=== PATIENT | female | born 1985 | race Two or more races ===

== ENCOUNTER → 2021-02-19 | Outpatient (CLI) | payer OTHER | END | disposition home or self-care (01) | LOC: PPH VACUNA | DX: Z23 Encounter for immunization (principal) ==

== ENCOUNTER 2023-04-16 15:10 | Inpatient (IN) | payer OTHER ==
[~2023-04-16] VITALS: Ht 142.2 cm; Wt 62.6 kg
[2023-04-17] MEDS ORDERED: ASHLYNA 0.15-01 EACH PO (14:56)
[2023-04-24] MEDS ORDERED: CIPRO500 MG PO (08:15)
[2023-04-24] MEDS ORDERED: METRONIDAZOLE500 MG PO (08:15)
[2023-04-24] MEDS ORDERED: FLUCONAZOLE100 MG PO (08:17)
[2023-04-24] MEDS ORDERED: TRAM1TAB98 PO (08:17)
[2023-04-24] MEDS ORDERED: INTESTINEX680 M1 PO (08:17)
[2023-04-24] MEDS ORDERED: ZYRTEC10 MG PO (08:18)
== END 2023-04-24 10:30 | disposition home or self-care (01) | DRG 349 ==
LOC: SURG 04-21 08:45 → SURH 04-21 10:31 → O/R 04-21 10:31 → SURH 04-21 11:12 → SURG 04-21 11:15 → SURH 04-24 10:30
PROVIDERS: ADMIT Surgery; ATTEND Surgery
PROC: 0JQB0ZZ Repair Perineum Subcutaneous Tissue and Fascia, Open Approach (ICD-10-PCS; 2023-04-21)
PROC: 0DQR0ZZ Repair Anal Sphincter, Open Approach (ICD-10-PCS; 2023-04-21)
PROC: 0WQNXZZ Repair Female Perineum, External Approach (ICD-10-PCS; 2023-04-21)
PROC: 0DBP7ZZ Excision of Rectum, Via Natural or Artificial Opening (ICD-10-PCS; principal; 2023-04-21 08:45)
DX: N82.3 Fistula of vagina to large intestine (principal); K62.81 Anal sphincter tear (healed) (nontraumatic) (old); Z20.822 Contact with and (suspected) exposure to COVID-19

== ENCOUNTER 2023-06-21 12:21 | Inpatient (IN) | payer OTHER ==
[~2023-06-21] VITALS: Ht 142.2 cm; Wt 55.3 kg
[~2023-06-21 12:21] MED LIST: ASHLYNA 0.15-01 EACH PO; CIPRO500 MG PO; FLUCONAZOLE100 MG PO; INTESTINEX680 M1 PO; METRONIDAZOLE500 MG PO; TRAM1TAB98 PO; ZYRTEC10 MG PO
[2023-06-27] MEDS ORDERED: LEVSIN0.125 MG PO (12:05)
[2023-06-27] MEDS ORDERED: INTESTINEX680 M1 PO (12:06)
[2023-06-27] MEDS ORDERED: IMODIUM A-1 MG/7.5 M PO (12:06)
== END 2023-06-27 17:19 | disposition home or self-care (01) | DRG 330 ==
LOC: ER 12:21 → SURG 22:23 → SURH 22:23 → SURG 06-22 08:26
PROVIDERS: General Practice; Internal Medicine Geriatric Medicine; ADMIT Surgery; ATTEND Surgery
PROC: BW21Y0Z Computerized Tomography (CT Scan) of Abdomen and Pelvis using Other Contrast, Unenhanced and Enhanced (ICD-10-PCS; 2023-06-21)
PROC: 0W9N0ZZ Drainage of Female Perineum, Open Approach (ICD-10-PCS; 2023-06-23)
PROC: 0D1B4Z4 Bypass Ileum to Cutaneous, Percutaneous Endoscopic Approach (ICD-10-PCS; principal; 2023-06-25 10:15)
DX: N82.3 Fistula of vagina to large intestine (principal); L02.215 Cutaneous abscess of perineum; Z20.822 Contact with and (suspected) exposure to COVID-19

== ENCOUNTER 2023-06-29 10:21 | Inpatient (IN) | payer OTHER ==
[~2023-06-29] VITALS: Ht 142.2 cm; Wt 54.9 kg
[~2023-06-29 10:21] MED LIST changes: +IMODIUM A-1 MG/7.5 M PO; +LEVSIN0.125 MG PO
[2023-07-05] MEDS ORDERED: HYOSCYAMINE0.125 M1 SL (12:53)
[2023-07-05] MEDS ORDERED: INTESTINEX680 M1 PO (12:53)
[2023-07-05] MEDS ORDERED: SIMETHICONE125 M1 PO (12:54)
[2023-07-05] MEDS ORDERED: PEPCID AC20 MG PO (12:56)
[2023-07-05] MEDS ORDERED: NEURONTIN300 MG PO (12:56)
[2023-07-05] MEDS ORDERED: PAIN RELIEF EX500 MG PO (12:56)
== END 2023-07-05 16:42 | disposition home or self-care (01) | DRG 389 ==
LOC: ER 10:21 → SURH 16:49
PROVIDERS: ADMIT Surgery; ATTEND Surgery
PROC: 0D9670Z Drainage of Stomach with Drainage Device, Via Natural or Artificial Opening (ICD-10-PCS; principal; 2023-06-29)
PROC: BW21ZZZ Computerized Tomography (CT Scan) of Abdomen and Pelvis (ICD-10-PCS; 2023-06-29)
PROC: 8E0ZXY6 Isolation (ICD-10-PCS; 2023-07-03)
PROC: 02HV33Z Insertion of Infusion Device into Superior Vena Cava, Percutaneous Approach (ICD-10-PCS; 2023-07-03)
DX: K56.600 Partial intestinal obstruction, unspecified as to cause (principal); K94.13 Enterostomy malfunction; N39.0 Urinary tract infection, site not specified; Z16.24 Resistance to multiple antibiotics; B96.1 Klebsiella pneumoniae [K. pneumoniae] as the cause of diseases classified elsewhere; K29.60 Other gastritis without bleeding; K21.9 Gastro-esophageal reflux disease without esophagitis

== ENCOUNTER 2023-12-01 10:00 | Inpatient (IN) | payer OTHER ==
[~2023-12-01] VITALS: Ht 142.2 cm; Wt 58.5 kg
[~2023-12-01 10:00] MED LIST changes: +HYOSCYAMINE0.125 M1 SL; +NEURONTIN300 MG PO; +PAIN RELIEF EX500 MG PO; +PEPCID AC20 MG PO; +SIMETHICONE125 M1 PO
[2023-12-10 14:37] LABS: ABG PO2 142.8 mmHg (80-100); BASE EXCESS -2.2 mmol/l; BICARBONATE 22.5 mmol/l (23-25); SaO2 99.1 %; Tco2 23.7 mmol/l; allen test SATISFACTORY; o2 32 %; puncture site RADIAL RIGHT
[2023-12-10 15:16] LABS: HEMATOCRIT 39.7 % (36.0-45.00); HEMOGLOBIN 13.5 g/dL (12.0-15.00); MEAN CELL VOLUME 84.7 fL (80.00-100.00); MEAN CORPUSCULAR HEMOGLOBIN 28.8 pg (27.00-32.0); PLATELET COUNT 307 K/uL (150-450); RED BLOOD COUNT 4.68 M/uL (4.00-6.00); RED CELL DISTRIBUTION WIDTH 13.3 % (11.5-14.5)
[2023-12-11 07:00] LABS: HEMATOCRIT 36.7 % (36.0-45.00); HEMOGLOBIN 12.5 g/dL (12.0-15.00); MEAN CELL VOLUME 83.7 fL (80.00-100.00); MEAN CORPUSCULAR HEMOGLOBIN 28.5 pg (27.00-32.0); PLATELET COUNT 284 K/uL (150-450); RED BLOOD COUNT 4.39 M/uL (4.00-6.00); RED CELL DISTRIBUTION WIDTH 13.4 % (11.5-14.5)
[2023-12-11 07:17] LABS: ALBUMIN 3.2 gm/dL (3.4-5.0); CALCIUM 8.7 mg/dL (8.5-10.1); CREATININE SERUM 0.51 mg/dL (0.55-1.02); GFR 134.96; MAGNESIUM 1.9 mg/dL (1.8-2.4); PHOSPHOROUS 3.9 mg/dL (2.5-4.9); POTASSIUM 4.48 mEq/L (3.5-5.1)
[2023-12-12 06:26] LABS: HEMATOCRIT 37.8 % (36.0-45.00); HEMOGLOBIN 13.1 g/dL (12.0-15.00); MEAN CELL VOLUME 83.1 fL (80.00-100.00); MEAN CORPUSCULAR HEMOGLOBIN 28.8 pg (27.00-32.0); MEAN CORPUSCULAR HGB CONC 34.6 g/dl (32.0-36.0); PLATELET COUNT 273 K/uL (150-450); RED BLOOD COUNT 4.55 M/uL (4.00-6.00); RED CELL DISTRIBUTION WIDTH 13.5 % (11.5-14.5)
[2023-12-12 06:59] LABS: CALCIUM 8.7 mg/dL (8.5-10.1); CREATININE SERUM 0.52 mg/dL (0.55-1.02); GFR 131.97; MAGNESIUM 2.1 mg/dL (1.8-2.4); PHOSPHOROUS 2.6 mg/dL (2.5-4.9); POTASSIUM 3.6 mEq/L (3.5-5.1)
[2023-12-13] MEDS ORDERED: GABAPENTIN300 MG PO (13:03)
== END 2023-12-13 13:41 | disposition home or self-care (01) | DRG 330 ==
LOC: O/R 12-10 06:00 → SURG 12-10 06:00 → SURH 12-10 09:15 → SURG 12-10 16:25
PROVIDERS: Internal Medicine Geriatric Medicine; ADMIT Surgery; ATTEND Surgery
PROC: 0DQP7ZZ Repair Rectum, Via Natural or Artificial Opening (ICD-10-PCS; 2023-12-10)
PROC: 0DQR0ZZ Repair Anal Sphincter, Open Approach (ICD-10-PCS; 2023-12-10)
PROC: 0WQN0ZZ Repair Female Perineum, Open Approach (ICD-10-PCS; 2023-12-10)
PROC: 0UQG7ZZ Repair Vagina, Via Natural or Artificial Opening (ICD-10-PCS; 2023-12-10)
PROC: 0DBP7ZZ Excision of Rectum, Via Natural or Artificial Opening (ICD-10-PCS; principal; 2023-12-10 09:15)
PROC: 4A12X4Z Monitoring of Cardiac Electrical Activity, External Approach (ICD-10-PCS; 2023-12-11)
DX: K61.0 Anal abscess (principal); N82.3 Fistula of vagina to large intestine; R15.9 Full incontinence of feces; G47.30 Sleep apnea, unspecified; S31.831A Laceration without foreign body of anus, initial encounter

== ENCOUNTER 2024-07-26 11:58 | Inpatient (IN) | payer OTHER ==
[~2024-07-26] VITALS: Ht 142.2 cm; Wt 64.9 kg
[~2024-07-26 11:58] MED LIST changes: +GABAPENTIN300 MG PO
[2024-08-02] MEDS ORDERED: METRONIDAZOLE/SODIUM CHLORIDE 500 MG/100 ML PIGGYBACK IV ONE (07:21)
[2024-08-02] MEDS ORDERED: CEFTRIAXONE SODIUM 2,000 MG VIAL ONE (07:21)
[2024-08-02] MEDS ORDERED: LIDOCAINE HCL 1%/EPINEPHRINE 20ML VIAL IJ ONE (07:22)
[2024-08-02] MEDS ORDERED: BUPIVACAINE HCL/Mpf 0.5% 10ML VIAL ONE (07:22)
[2024-08-02] MEDS ORDERED: CHLORHEXIDINE GLUCONATE 120 ML BOTTLE TOP ONE (07:33)
[2024-08-02] MEDS ORDERED: POVIDONE-IODINE 118 ML BOTT TOP ONE (07:34)
[2024-08-02] MEDS ORDERED: SUGAMMADEX SODIUM 200 MG/2 ML VIAL IV ONE (09:34)
[2024-08-02] MEDS ORDERED: MORPHINE SULFATE 4 MG/ML CARTRIDGE IV PRN (10:15)
[2024-08-02] MEDS ORDERED: RINGERS SOLUTION,LACTATED 1,000 ML IV SCH (10:15)
[2024-08-02] MEDS ORDERED: ONDANSETRON HCL 2 MG/ML VIAL IV PRN (10:15)
[2024-08-02] MEDS ORDERED: OxyCODONE HCL 5 MG TABLET (ROXICODONE) PO PRN (10:15)
[2024-08-02 12:22] LABS: HEMATOCRIT 41.3 % (36.0-45.00); HEMOGLOBIN 14.1 g/dL (12.0-15.00); MEAN CELL VOLUME 84.9 fL (80.00-100.00); MEAN CORPUSCULAR HGB CONC 34.2 g/dl (32.0-36.0); PLATELET COUNT 359 K/uL (150-450); RED BLOOD COUNT 4.87 M/uL (4.00-6.00); RED CELL DISTRIBUTION WIDTH 12.9 % (11.5-14.5)
[2024-08-02] MEDS ORDERED: ENALAPRILAT DIHYDRATE 1.25 MG/ML VIAL IV PRN (12:30)
[2024-08-02] MEDS ORDERED: ACETAMINOPHEN 500 MG GEL..CAP PO SCH (14:00)
[2024-08-02 14:30] VITALS: BP 127/76; O2SAT 100
[2024-08-02 16:00] VITALS: BP 126/82; O2SAT 97
[2024-08-02] MEDS ORDERED: METOCLOPRAMIDE HCL 5 MG/ML VIAL IV SCH (17:00)
[2024-08-02] MEDS ORDERED: POLYETHYLENE GLYCOL 3350 17 GM BLIST.PACK PO SCH (17:00)
[2024-08-02] MEDS ORDERED: GABAPENTIN 300 MG CAPSULE PO SCH (17:00)
[2024-08-02] MEDS ORDERED: HYOSCYAMINE SULFATE 0.125 MG TAB.SUBL SL SCH (17:00)
[2024-08-02] MEDS ORDERED: FAMOTIDINE/PF 20 MG/2 ML VIAL IV PUSH SCH (21:00)
[2024-08-03 02:06] VITALS: BP 140/81; O2SAT 97
[2024-08-03 06:58] LABS: HEMATOCRIT 39.4 % (36.0-45.00); HEMOGLOBIN 13.9 g/dL (12.0-15.00); MEAN CELL VOLUME 83.3 fL (80.00-100.00); MEAN CORPUSCULAR HEMOGLOBIN 29.4 pg (27.00-32.0); MEAN CORPUSCULAR HGB CONC 35.2 g/dl (32.0-36.0); PLATELET COUNT 336 K/uL (150-450); RED BLOOD COUNT 4.73 M/uL (4.00-6.00); RED CELL DISTRIBUTION WIDTH 13.3 % (11.5-14.5)
[2024-08-03 08:17] LABS: ALBUMIN 3.1 gm/dL (3.4-5.0); CALCIUM 8.6 mg/dL (8.5-10.1); CREATININE SERUM 0.55 mg/dL (0.55-1.02); GFR 123.05; MAGNESIUM 1.9 mg/dL (1.8-2.4); PHOSPHOROUS 3.3 mg/dL (2.5-4.9); POTASSIUM 3.98 mEq/L (3.5-5.1)
[2024-08-03 08:23] VITALS: BP 133/70; O2SAT 98
[2024-08-03 08:44] VITALS: BP 130/75; O2SAT 98
[2024-08-03] MEDS ORDERED: LACTOBACILLUS ACIDOPHILUS 1 CAP CAP PO SCH (09:00)
[2024-08-03] MEDS ORDERED: ENOXAPARIN SODIUM 40 MG/0.4 ML SYRINGE SUBCUTANEO SCH (17:00)
[2024-08-03 17:39] VITALS: BP 124/85; O2SAT 99
[2024-08-04 00:37] VITALS: BP 139/74; BP 194/86; O2SAT 100; O2SAT 98
[2024-08-04 07:46] LABS: HEMATOCRIT 41.7 % (36.0-45.00); HEMOGLOBIN 14.5 g/dL (12.0-15.00); MEAN CELL VOLUME 84.4 fL (80.00-100.00); MEAN CORPUSCULAR HEMOGLOBIN 29.3 pg (27.00-32.0); MEAN CORPUSCULAR HGB CONC 34.7 g/dl (32.0-36.0); PLATELET COUNT 364 K/uL (150-450); RED BLOOD COUNT 4.94 M/uL (4.00-6.00); RED CELL DISTRIBUTION WIDTH 13.3 % (11.5-14.5)
[2024-08-04 08:08] LABS: CREATININE SERUM 0.48 mg/dL (0.55-1.02); GFR 143.98; PHOSPHOROUS 3.4 mg/dL (2.5-4.9); POTASSIUM 3.88 mEq/L (3.5-5.1)
[2024-08-04] MEDS ORDERED: ENOXAPARIN SODIUM 40 MG/0.4 ML SYRINGE SUBCUTANEO SCH (09:00)
[2024-08-04 09:41] VITALS: BP 119/80; O2SAT 96
[2024-08-04 16:11] VITALS: BP 111/75; O2SAT 98
[2024-08-05 00:36] VITALS: BP 106/74; O2SAT 100
[2024-08-05 06:49] LABS: HEMOGLOBIN 13.7 g/dL (12.0-15.00); MEAN CELL VOLUME 85.3 fL (80.00-100.00); MEAN CORPUSCULAR HEMOGLOBIN 29.3 pg (27.00-32.0); MEAN CORPUSCULAR HGB CONC 34.3 g/dl (32.0-36.0); PLATELET COUNT 317 K/uL (150-450); RED BLOOD COUNT 4.69 M/uL (4.00-6.00); RED CELL DISTRIBUTION WIDTH 12.7 % (11.5-14.5)
[2024-08-05 07:37] LABS: BILIRUBIN TOTAL 0.44 mg/dL (0.3-1.2); CALCIUM 8.7 mg/dL (8.5-10.1); CREATININE SERUM 0.48 mg/dL (0.55-1.02); GFR 143.98; GLOBULINA 3.1 G/DL (2.4-3.5); POTASSIUM 3.71 mEq/L (3.5-5.1); TOTAL PROTEIN 6.1 gm/dL (6.4-8.2)
[2024-08-05 08:00] VITALS: BP 106/73; O2SAT 97
[2024-08-05 16:24] VITALS: BP 124/79; O2SAT 98
[2024-08-05] MEDS ORDERED: VANCOMYCIN HCL 125 MG/7.5 ML BLIST.PACK PO SCH (18:00)
[2024-08-06] VITALS: BP 131/90; O2SAT 97
[2024-08-06 09:12] VITALS: BP 112/77; O2SAT 98
[2024-08-06] MEDS ORDERED: SIMETHICONE 125 MG CAPSULE PO STA (14:23)
[2024-08-06] MEDS ORDERED: SIMETHICONE 125 MG CAPSULE PO PRN (14:30)
[2024-08-06 15:58] VITALS: BP 126/87; O2SAT 98
[2024-08-07] VITALS: BP 118/67; O2SAT 98
[2024-08-07 09:40] VITALS: BP 125/74; O2SAT 98
[2024-08-07] MEDS ORDERED: VANCOMYCIN HCL125 MG PO (11:00)
[2024-08-07] MEDS ORDERED: HYOSCYAMINE0.125 M1 SL (11:01)
[2024-08-07] MEDS ORDERED: INTESTINEX680 M1 PO (11:01)
== END 2024-08-07 12:44 | disposition home or self-care (01) | DRG 348 ==
LOC: SURG 12:15 → O/R 08-02 06:46 → SURG 08-02 10:00 → SURH 08-02 10:37 → SURG 08-02 12:15 → SURH 08-05 17:03
PROVIDERS: Internal Medicine Geriatric Medicine; ADMIT Surgery; ATTEND Surgery
PROC: 0DBB4ZZ Excision of Ileum, Percutaneous Endoscopic Approach (ICD-10-PCS; principal; 2024-08-02 10:00)
DX: Z43.2 Encounter for attention to ileostomy (principal); A04.72 Enterocolitis due to Clostridium difficile, not specified as recurrent